=== PATIENT | male | born 1970 | race Caucasian/White ===

== ENCOUNTER 2021-10-06 00:49 | Observation (INO) | payer BC, SELFPAY ==
[2021-10-06] VITALS (13 sets, daily range): BP systolic 119–169; BP diastolic 84–115; PULSE 50–75; RESP 14–21; TEMP 36.2–36.6; O2SAT 95–99; BMI 32.0; BMI 29.7
--- NOTE | 2021-10-06 00:54 | EKG12_ITS ---
Test Reason : CP Blood Pressure : / mmHG Vent. Rate : 070 BPM Atrial Rate : 070 BPM P-R Int : 170 ms QRS Dur : 098 ms QT Int : 392 ms P-R-T Axes : 073 -04 015 degrees QTc Int : 423 ms Normal sinus rhythm Normal ECG Confirmed by KLE MONROY, CHAPIN ([id number]), primer expeditor and drier YENNIFER RODRÍGUEZ ([id number]) on 10/07/2021 9:56:33 AM Referred By: PL Confirmed By:CHAPIN BEGUM MD
--- NOTE | 2021-10-06 00:54 | RAD_ITS ---
STUDY: AP PORTABLE UPRIGHT CHEST X-RAY OF 2 0054 HOURS ON 10/06/2021 REASON FOR EXAM: 51-year-old male with chest pain. TECHNIQUE: A single view AP portable upright chest x-ray was performed. COMPARISON: None. FINDINGS: Mild demineralization. Old surgical plating of a mid right clavicular fracture. No rib fractures. Moderate osteophytic degenerative changes of the thoracic spine. Borderline cardiomegaly without heart failure. No pulmonary infiltrates, atelectasis, effusion, or pulmonary mass lesions. RAD/Chest 1 View (Portable) IMPRESSION: 1. Borderline cardiomegaly without heart failure. 2. No other evidence of active cardiopulmonary disease. 3. Old surgical plating of a mid right clavicular fracture. Possibility degenerative changes of the thoracic spine. Mild demineralization. Electronically Signed: Tera Thornton MD at 2:17 EDT ,
[2021-10-06 01:06] LABS: Basophil# 0.09 X10^3/uL; Basophil% 0.6 % (0-1); Eosinophil# 0.08 X10^3/uL; Eosinophils% 0.5 % (0-5); Hematocrit 51.8 % (40-54); Hemoglobin 18.4 g/dL (13.0-16.5); Lymphocyte % 35.2 % (19-41); Mean Corp Hgb Conc 35.5 g/dL (32-36); Mean Corpuscular Hgb 33.3 pg (27.0-32.0); Mean Corpuscular Volume 93.7 fL (80-94); Mean Platelet Vol. 8.9 fl (6.2-12.0); Monocyte# 1.41 X10^3/uL; Monocyte% 9.5 % (0-10); NRBC Flagged by Analyzer 0 % (0-5); Neutrophil # 7.96 X10^3/uL (2.7-7.7); Neutrophil % 53.9 % (47-70); POSITIVE DIFFERENTIAL YES; Platelet Count 363 K/mm3 (150-450); RBC Distribution Width CV 13.6 % (11.6-14.6); RBC Distribution Width SD 47.2 fl (35.1-43.9); Red Blood Count 5.53 M/mm3 (4.6-6.2); White Blood Count 14.8 K/mm3 (4.4-11.0)
--- NOTE | 2021-10-06 01:17 | CT_ITS ---
STUDY: PULMONARY AND CHEST CT ANGIOGRAPHY OF THE CEREBRAL 0139 HOURS ON 10/06/2021 REASON FOR EXAM: 51-year-old male with chest pain. Evaluate for pulmonary thromboembolism. RADIATION DOSAGE (If Supplied By Facility): CTDIvol = ( 13.38 ) mGy, DLP = ( 471.40 ) mGycm TECHNIQUE: The examination was performed with the intravenous administration of IV 100mL Isovue-300. Post-processing of the angiographic images was performed, with multiplanar reformation and 3D reconstruction. Individualized dose optimization techniques were used for this CT. COMPARISON: None. FINDINGS: Borderline to mild cardiomegaly. No heart failure. No mediastinal or hilar lymphadenopathy. Normal trachea and esophagus. Small area of fibrosis in the lateral aspect of the apical segment left upper lobe. Mild bilateral bronchial wall thickening that may represent a mild bilateral bronchitis or may be secondary to smoking. No evidence of pulmonary infiltrates, atelectasis, effusion, or pulmonary mass lesions. No pulmonary thromboembolism. No thoracic aortic dissection or aneurysm. Normal osseous structures. CT/CTA Chest W/WO Contrast IMPRESSION: 1. No pulmonary thromboembolism. 2. No thoracic aortic dissection or aneurysm. 3. Borderline to mild cardiomegaly without heart failure. 4. Mild bilateral bronchial wall thickening that may represent a mild bilateral bronchitis or may be secondary to smoking. 5. No other evidence of active cardiopulmonary disease. Electronically Signed: Tera Thornton MD at 2:44 EDT ,
[2021-10-06 01:18] LABS: Differential Indicated SCAN CRITERIA MET
--- NOTE | 2021-10-06 01:20 | ED.VIS.CHEST ---
HPI History of Present Illness Chief Complaint: Chest Pain Informant: patient Narrative Narrative: Patient was awoken this night with chest pain. It is a heaviness sitting on his sternum. It radiates to both sides of his chest and to the back. He states it hurts when he takes a deep breath. He has had no nausea vomiting. No lightheadedness. Not presyncopal. He is not diaphoretic. However, he states when this first started he did get sweaty. He has not had this before he thinks. He does remember having a stress test about 5 years ago. This was negative. He is not sure if this pain was the same. He has no travel surgery immobilization personal family history of DVT or PE. He does have family history of heart disease. His father had bypass surgery in his 40s. This patient has history of smoking and was counseled to quit. He is not treated for blood pressure, cholesterol, diabetes. PFSH PFSH Home Medications No Known/Unobtainable [No Known Home Medications] 09/11/15 [History Last Taken Unknown] Allergy/AdvReac Type Severity Reaction Status Date / Time morphine Allergy Anaphylaxis Verified 10/06/21 00:53 Social History Smoking Status: Current every day smoker tobacco type: cigarettes ROS ROS ED Constitutional Constitutional ED: Denies chills or fever(s) Eyes Eyes: Denies blurry vision ENT ENT ED: Denies rhinorrhea or sore throat Cardiovascular Cardiovascular: Reports as per HPI and chest pain Respiratory/Chest Respiratory/Chest: Reports dyspnea; Denies cough Gastrointestinal Gastrointestinal: Denies nausea or vomiting Genitourinary Genitourinary ED: Denies dysuria Musculoskeletal Musculoskeletal: Denies arthralgias, myalgias or neck pain Integumentary Denies rash Neurologic Neurologic: Denies headache(s), paresthesias or weakness Psychiatric Psychiatric: Denies depression Endocrine Endocrinology: Denies polydipsia or polyuria Hematologic/Lymphatic Hematologic/Lymphatic: Denies easy bleeding or easy bruising Allergic/Immunologic Allergic/Immunologic ED: Denies urticaria EXAM Physical Exam Const Vital Signs: 10/06/21 00:49 10/06/21 00:51 10/06/21 00:58 Temperature 97.6 F L Temperature Source Temporal Pulse Rate 75 Respiratory Rate 15 Respiratory Effort Normal Non-Labored Blood Pressure 169/115 H Blood Pressure Mean 133 Pulse Ox 98 98 Oxygen Delivery Method Room Air Room Air 10/06/21 01:47 10/06/21 01:52 10/06/21 01:56 Temperature Temperature Source Pulse Rate 69 68 69 Respiratory Rate Respiratory Effort Blood Pressure 125/114 H 152/98 H 134/90 H Blood Pressure Mean Pulse Ox Oxygen Delivery Method 10/06/21 02:49 10/06/21 03:10 Temperature 97.1 F L Temperature Source Temporal Pulse Rate 50 L 50 L Respiratory Rate 15 21 H Respiratory Effort Blood Pressure 124/87 H 119/84 H Blood Pressure Mean 99 95 Pulse Ox 95 95 Oxygen Delivery Method Room Air Room Air Positive well nourished and well developed General Appearance ED: well developed and NAD HEENT normocephalic and atraumatic Eyes General Eye ED: Negative for pale conjunctiva Neck No no JVD Chest Wall inspection of chest normal Chest Narrative: Patient does have some tenderness to the right side of his sternum but not anywhere else. No subcu air. No crepitance. Resp normal respiratory effort and clear to auscultation bilaterally Resp Narrative: Patient's lungs sound clear. He can take good deep breaths. There is no observable discomfort with this. There is no cessation of inspiration with a deep breath. Effort and Inspection: Negative for respiratory distress Auscultation: Negative for rales, rhonchi or wheezes Cardio regular rate, regular rhythm and S1 normal heart sound Rate: other Other Details: Heart is regular. I do not hear murmur at this time. No muffled tones. Peripheral pulses are equal x4. GI normal to inspection, nondistended, normoactive bowel sounds Back/Spine no CVA tenderness Extremity normal to inspection General Extremety ED: Negative for edema, pulses abnormal or tenderness General Extremity: Negative for edema or pulses abnormal Neuro Sensorium / Orientation: awake and alert Psych mental status grossly normal Skin no rashes or lesions noted Heart Score History: Moderately Suspicious ECG: Normal Age: >45 - <65 years Risk Factors: >/= 3 Risk Factors or History of CAD Troponin: </= Normal Limit Score: 4 MDM MDM MDM Narrative Medical decision making narrative: Patient CBC showed high white count and hemoglobin. This may be from chronic smoking. Electrolytes are overall unremarkable. Troponin was negative. CT scan of the chest did not show any dissection or pulmonary embolus. Patient was feeling better. His blood pressure did come down after nitro. His pain was better but not gone. He was given some Toradol as he has anaphylaxis to morphine. Patient has a heart score of 4. He has not had a stress test in 5 years. I discussed the case with the hospitalist. Lab Data Labs: Laboratory Results - last 24 hr 10/06/21 10/06/21 10/06/21 00:50 00:50 02:00 WBC 14.8 H RBC 5.53 Hgb 18.4 H* Hct 51.8 MCV 93.7 MCH 33.3 H MCHC 35.5 RDW Std Deviation 47.2 H RDW Coeff of Liane 13.6 Plt Count 363 MPV 8.9 Immature Gran % (Auto) 0.300 Neut % (Auto) 53.9 Lymph % (Auto) 35.2 [place] % (Auto) 9.5 Eos % (Auto) 0.5 Baso % (Auto) 0.6 Absolute Neuts (auto) 8.0 H Absolute Lymphs (auto) 5.20 H Nucleated RBC % 0 Diff Path Review May foll Sodium 140 Potassium 3.5 Chloride 107 Carbon Dioxide 28.0 Anion Gap 5 BUN 5 L Creatinine 0.85 Estim Creat Clear Calc 93.82 Est GFR (MDRD) Af Amer 122 Est GFR (MDRD) Non-Af 101 BUN/Creatinine Ratio 5.9 L Glucose 99 Calcium 9.4 Troponin I High Sens < 3 L < 3 L Radiography Diagnostic Testing: Clinical Impression(s) from Imaging Studies Chest X-Ray 10/06/21 00:54 IMPRESSION: 1. Borderline cardiomegaly without heart failure. 2. No other evidence of active cardiopulmonary disease. 3. Old surgical plating of a mid right clavicular fracture. Possibility degenerative changes of the thoracic spine. Mild demineralization. Electronically Signed: Tera Thornton MD at 2:17 EDT , Chest CTA 10/06/21 01:17 IMPRESSION: 1. No pulmonary thromboembolism. 2. No thoracic aortic dissection or aneurysm. 3. Borderline to mild cardiomegaly without heart failure. 4. Mild bilateral bronchial wall thickening that may represent a mild bilateral bronchitis or may be secondary to smoking. 5. No other evidence of active cardiopulmonary disease. Electronically Signed: Tera Thornton MD at 2:44 EDT , EKG Initial EKG: Comments: EKG done for chest pain read by me shows a normal sinus rhythm with a rate of 70. No acute ST elevation or depression. There is isolated T wave inversion in 3 which is a normal variant. AL interval, QRS duration and QTc normal. Discharge Plan Dx/Rx/DC Orders Clinical Impression: Chest pain, Elevated blood pressure reading, Tobacco abuse Disposition Disposition: Acute Care Hospital [facility] Discharge Date/Time: 10/06/21 03:26
[2021-10-06 01:27] LABS: Anion Gap 5 (5-15); BUN 5 mg/dL (7-18); BUN/Creat Ratio 5.9 RATIO (10-20); Calcium,Total 9.4 mg/dL (8.5-10.1); Chloride 107 mmol/L (98-107); Creatinine, Serum 0.85 mg/dL (0.70-1.30); EST Glomerular Filtration Rate 101 mL/min (>60); Est Glom Filt Rate - Afr Amer 122 mL/min (>60); Estimated Creatinine Clearance 93.82 ml/min; Glucose 99 mg/dL (74-106); Potassium 3.5 mmol/L (3.5-5.1); Sodium Level 140 mmol/L (136-145); Troponin-I HS < 3 pg/mL (3.0-78.0)
[2021-10-06] MEDS: Nitroglycerin SL (ED/IMG/CATH) 0.4 MG TABLET SL ×3 (01:47→01:56)
[2021-10-06] MEDS: Ketorolac 15 MG/ML Vial IV (02:55)
[2021-10-06 03:14] LABS: Troponin-I HS < 3 pg/mL (3.0-78.0)
--- NOTE | 2021-10-06 03:58 | PCM.HP.STD ---
HPI - General General Date of Admission: 10/06/21 HPI Narrative PAYAM OSULLIVAN, is a 51 M who presents with complaint of chest pain. Patient does not have anginal symptoms before this. Did not engage in recent strenuous activities such as would cause a musculoskeletal problem Patient states this awoke him, with pain 10/10 sitting on his sternum. It did not radiate. He does remember having a stress test about 5 years ago. This was negative. Father had early cardiac disease in his 40s. Patient smokes 1 ppd and was known to have High blood pressure, however he does not check his blood pressure take any medications for hypertension. Does not know that he has diabetes Patient did have negative troponins and his EKG shows normal sinus rhythm without depressions or elevations that are concerning. Electrolytes were obtained and these are normal. CTA neg for embolism. He still has about 7 out of 10 chest pain at this time, at admission Family history as above. PFSH Home Medications No Known/Unobtainable [No Known Home Medications] 09/11/15 [History Last Taken Unknown] Allergy/AdvReac Type Severity Reaction Status Date / Time morphine Allergy Anaphylaxis Verified 10/06/21 00:53 Social History Smoking Status: Current every day smoker tobacco type: cigarettes Vital Signs Vital Signs Vital Signs: 10/06/21 00:49 10/06/21 00:51 10/06/21 00:58 Temperature 97.6 F L Temperature Source Temporal Pulse Rate 75 Respiratory Rate 15 Respiratory Effort Normal Non-Labored Blood Pressure 169/115 H Blood Pressure Mean 133 Pulse Ox 98 98 Oxygen Delivery Method Room Air Room Air 10/06/21 01:47 10/06/21 01:52 10/06/21 01:56 Temperature Temperature Source Pulse Rate 69 68 69 Respiratory Rate Respiratory Effort Blood Pressure 125/114 H 152/98 H 134/90 H Blood Pressure Mean Pulse Ox Oxygen Delivery Method 10/06/21 02:49 10/06/21 03:10 Temperature 97.1 F L Temperature Source Temporal Pulse Rate 50 L 50 L Respiratory Rate 15 21 H Respiratory Effort Blood Pressure 124/87 H 119/84 H Blood Pressure Mean 99 95 Pulse Ox 95 95 Oxygen Delivery Method Room Air Room Air Weight Weight: 184 lb 1.376 oz Body Mass Index (BMI) 29.7 Physical Exam Narrative Narrative General Appearance ED: well developed and NAD Nutritional Appearance: well HEENT Moist mucous membranes normocephalic Eyes PERRL Thyroid: Negative for goiter Chest Wall inspection of chest normal and palpation of chest normal Resp normal respiratory effort, no retractions and clear to auscultation bilaterally Auscultation: Negative for rales, rhonchi or wheezes Cardio regular rate, regular rhythm, S1 normal heart sound, S2 normal heart sound and no murmurs GI non-tender, non-distended and no masses Auscultation: normoactive bowel sounds Palpation: soft; Negative for tender or guarding. No lower extremity edema. Results Lab / Micro Data Result Diagrams: 10/06/21 00:50 10/06/21 00:50 Labs: Laboratory Results - last 24 hr 10/06/21 00:50: WBC 14.8 H, RBC 5.53, Hgb 18.4 H*, Hct 51.8, MCV 93.7, MCH 33.3 H, MCHC 35.5, RDW Std Deviation 47.2 H, RDW Coeff of Liane 13.6, Plt Count 363, MPV 8.9, Immature Gran % (Auto) 0.300, Neut % (Auto) 53.9, Lymph % (Auto) 35.2, [place] % (Auto) 9.5, Eos % (Auto) 0.5, Baso % (Auto) 0.6, Absolute Neuts (auto) 8.0 H, Absolute Lymphs (auto) 5.20 H, Nucleated RBC % 0, Diff Path Review November10/06/21 00:50: Sodium 140, Potassium 3.5, Chloride 107, Carbon Dioxide 28.0, Anion Gap 5, BUN 5 L, Creatinine 0.85, Estim Creat Clear Calc 93.82, Est GFR (MDRD) Af Amer 122, Est GFR (MDRD) Non-Af 101, BUN/Creatinine Ratio 5.9 L, Glucose 99, Calcium 9.4, Troponin I High Sens < 3 L 10/06/21 02:00: Troponin I High Sens < 3 L Radiology Impression Chest X-Ray 10/06/21 00:54 IMPRESSION: 1. Borderline cardiomegaly without heart failure. 2. No other evidence of active cardiopulmonary disease. 3. Old surgical plating of a mid right clavicular fracture. Possibility degenerative changes of the thoracic spine. Mild demineralization. Electronically Signed: Tera Thornton MD at 2:17 EDT , Chest CTA 10/06/21 01:17 IMPRESSION: 1. No pulmonary thromboembolism. 2. No thoracic aortic dissection or aneurysm. 3. Borderline to mild cardiomegaly without heart failure. 4. Mild bilateral bronchial wall thickening that may represent a mild bilateral bronchitis or may be secondary to smoking. 5. No other evidence of active cardiopulmonary disease. 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 He does not want to be on life support Ganga Cat MD Charges/Coding Visit Charges Inpatient E&M: 94831 Subs Hosp L2
--- NOTE | 2021-10-06 04:00 | EKG12_ITS ---
Test Reason : Blood Pressure : / mmHG Vent. Rate : 041 BPM Atrial Rate : 041 BPM P-R Int : 158 ms QRS Dur : 098 ms QT Int : 438 ms P-R-T Axes : 021 021 -01 degrees QTc Int : 361 ms Marked sinus bradycardia with sinus arrhythmia Abnormal ECG When compared with ECG of 06-OCT-2021 04:00, MANUAL COMPARISON REQUIRED, DATA IS UNCONFIRMED Confirmed by GEORGE MONROY, CARLOTA ([id number]), department editor YENNIFER RODRÍGUEZ ([id number]) on 10/07/2021 9:31:42 AM Referred By: CHLOE Confirmed By:CARLOTA VAZQUEZ MD
[2021-10-06 07:01] LABS: Absolute Lymphocyte Count 2.73 X10^3/uL (0.83-4.51); Absolute Neutrophil Count 12.6 X10^3/uL (2.0-7.7); Basophil# 0.05 X10^3/uL; Basophil% 0.3 % (0-1); Eosinophil# 0.01 X10^3/uL; Eosinophils% 0.1 % (0-5); Hematocrit 47.6 % (40-54); Hemoglobin 17.1 g/dL (13.0-16.5); Lymphocyte # 2.73 X10^3/ul (0.83-4.51); Lymphocyte % 16.5 % (19-41); Mean Corp Hgb Conc 35.9 g/dL (32-36); Mean Corpuscular Hgb 33.3 pg (27.0-32.0); Mean Corpuscular Volume 92.8 fL (80-94); Mean Platelet Vol. 9.1 fl (6.2-12.0); Monocyte# 1.05 X10^3/uL; Monocyte% 6.3 % (0-10); NRBC Flagged by Analyzer 0 % (0-5); Neutrophil # 12.64 X10^3/uL (2.7-7.7); Neutrophil % 76.3 % (47-70); Platelet Count 340 K/mm3 (150-450); RBC Distribution Width CV 13.5 % (11.6-14.6); RBC Distribution Width SD 45.9 fl (35.1-43.9); Red Blood Count 5.13 M/mm3 (4.6-6.2); White Blood Count 16.6 K/mm3 (4.4-11.0)
[2021-10-06 07:37] LABS: Cholesterol 173 mg/dL (200); High Density Lipoprotein 29 mg/dL; Magnesium 2.2 mg/dL (1.6-2.6); Triglycerides 126 mg/dL; Troponin-I HS < 3 pg/mL (3.0-78.0); Very Low Density Lipoprotein 25 mg/dL (5-40)
--- NOTE | 2021-10-06 07:57 | EKG12_ITS ---
Test Reason : CP ADMIT Blood Pressure : / mmHG Vent. Rate : 057 BPM Atrial Rate : 057 BPM P-R Int : 158 ms QRS Dur : 098 ms QT Int : 428 ms P-R-T Axes : 021 017 -05 degrees QTc Int : 416 ms Sinus bradycardia with sinus arrhythmia Otherwise normal ECG When compared with ECG of 20-AUG-2002 00:11, T wave amplitude has increased in Anterolateral leads Confirmed by GEORGE MONROY, CARLOTA ([id number]), newspaper copy editor YENNIFER RODRÍGUEZ ([id number]) on 10/07/2021 9:32:55 AM Referred By: GARRISON Confirmed By:CARLOTA VAZQUEZ MD
[2021-10-06 08:54] LABS: Hemoglobin A1c 5.1 % (3.8-5.6)
--- NOTE | 2021-10-06 11:59 | CHAPLAIN ---
Type of Pastoral Visit _x__ Initial Visit ___ Follow-up Visit ___ On-call Visit ___ General Patient Visit ___ Spiritual Assessment ___ Family Conference ___ Bereavement ___ Rapid Response ___ Code Blue ___ Other (describe below) Pastoral Care Referral From _x__ Patient ___ Family ___ Nurse ___ Physician ___ Phone Engineer ___ Storage Solutions Architect ___ Other (describe below) Sacrament/Intervention _x__ Active listening ___ Anointing ___ Gnosticism ___ Bereavement ___ Communion ___ Nathaly exploration ___ ___ Life review ___ Prayer ___ Reconciliation ___ Sacrament of Sick ___ Supportive presence ___ Wedding ___ Other (describe below) Pastoral Comments offer of support given to patient; pt states that whatever happens to me I am good to go - Home or home; pt refers to his belief in God and how He helps him in these times; SO is at bedside for support; pt reports no other needs
--- NOTE | 2021-10-06 12:44 | STRESSREP_ITS ---
Stress Test Report Date: 10-06-2021 Procedure: Exercise tolerance test/imaging study Indications: Chest pain Consent: Per the patient Procedure: The patient exercised on a Jose protocol for 9 minutes completing Stage III achieving a peak heart rate of 136 bpm (80% predicted maximal heart rate) with a peak blood pressure 152/88 mmHg and a peak MET capacity of 10 METs. The baseline ECG demonstrated sinus bradycardia. The peak exercise ECG demonstrated no obvious ECG changes. There were no cardiac dysrhythmias pretest, during exercise, or recovery. The functional capacity was considered good. There was notation of chest discomfort pretest but no report of chest discomfort during exercise or recovery. The examination was discontinued secondary to dyspnea and leg fatigue. Impression: 1. Technically inadequate (percent predicted maximal heart rate less than 85%) exercise tolerance test 2. Peak exercise ECG with no obvious ECG changes at the heart rate achieved 3. There were no cardiac dysrhythmias pretest, during exercise, or recovery 4. Nuclear images pending Myocardial perfusion imaging study: Technique: The patient was injected with 12.0 mCi of technetium 99m Cardiolite and subsequently rest SPECT Cardiolite nuclear imaging was obtained in the horizontal long, vertical long, and short axis views. The patient exercised on a Jose protocol for 9 minutes completing Stage III achieving a peak heart rate of 136 bpm (80% predicted maximal heart rate) with a peak blood pressure 152/88 mmHg and a peak MET capacity of 10 METs. The patient was injected with 33.2 mCi of technetium 99m Cardiolite and subsequently stress SPECT Cardiolite nuclear imaging was obtained in the horizontal long, vertical long, and short axis views. A gated Cardiolite study at peak stress was obtained. Interpretation: Rest and stress SPECT Cardiolite nuclear imaging status post realignment, normalization, and attenuation correction, demonstrates the appearance of relative uniform tracer uptake and myocardial perfusion appearing within normal limits. There is end systolic thickening and brightening. The gated Cardiolite study demonstrates myocardial thickening and inward wall motion. The reported LVEF is 58%. Impression: 1. Rest and stress SPECT Cardiolite nuclear imaging demonstrate relative uniform tracer uptake and myocardial perfusion appearing within normal limits at the heart rate achieved. 2. The gated Cardiolite study reports an LVEF of 58%. This note was generated with [employer]'s what's in store software. It may contain incorrect words, spelling, and punctuation that were not noted in checking the note before signing.
[2021-10-06 13:30] LABS: Pathologist Review Reviewed
--- NOTE | 2021-10-06 14:39 | PCM.DC ---
Discharge Instructions Diet Discharge Diet: No restrictions Activity Discharge Activity: Return to Normal Activity Weight Bearing Status: Full weight bearing Follow Up Care Test Results: Test results from this visit will be discussed in further detail at your follow-up appointment, if applicable. Discharge Plan Admission Admit Date/Time: 10/06/21 03:52 Primary Reason for Your Visit: chest wall pain Attending Provider: Darwin Montelongo Primary Care Provider: Care Physician,No Primary Instructions Additional Instructions / Restrictions: Follow up with a primary care physician within 3-4 weeks Discharge Orders/Prescriptions Prescriptions: No Action No Known Home Medications RF: 0 Referrals / Follow Up: Care Physician,No Primary [Primary Care Provider] - Disposition Disposition (needs filled in before D/C Order can be placed): Home, Self Care
--- NOTE | 2021-10-06 15:07 | DS.PCM_ITS ---
Providers Date of Admission: 10/06/21 Date of Discharge: 10/06/21 Primary Care Physician: No Primary Care Phys Reason For Visit: CHEST PAIN Diagnosis Discharge Diagnosis (1) Tobacco abuse: Status: Acute Code(s): Z72.0 - Tobacco use (2) Elevated blood pressure reading: Status: Acute Code(s): R03.0 - Elevated blood-pressure reading, without diagnosis of hypertension (3) Chest pain: Status: Acute Code(s): R07.9 - Chest pain, unspecified Plan: 1. Musculoskeletal chest pain #2 transient hypertension Medications at Discharge Home Medications No Known/Unobtainable [No Known Home Medications] 09/11/15 Hospital Course Operations None Procedures Nuclear stress test Summary of Care Provided Minutes Spent on Discharge: 30 Hospital Course: This 51-year-old white male was seen in the emergency room at [facility] with complaints of precordial chest pain, work-up in the emergency room including an EKG, cardiac enzymes, and the chest x-ray all were unremarkable. Patient was placed in observation status on PCU, serial enzymes were obtained and these remain normal. Patient underwent a nuclear stress test on 10/06/2021 that was negative for reversible ischemia. On 10/06/2021, patient was seen and examined: On examination he appeared in good health and spirits. Vital signs as documented. Skin warm and dry and without overt rashes. Neck without JVD, neck was supple, trachea midline, thyroid was normal. Lungs clear bilaterally, normal air movement was noted. Heart exam notable for regular rhythm, normal sounds and absence of murmurs, rubs or gallops. Abdomen unremarkable and without evidence of organomegaly, masses, or abdominal aortic enlargement. Bowel sounds are present, abdomen is not distended. Extremities nonedematous, no cyanosis was noted, no clubbing was noted. Neuro: Cranial nerves II through XII are grossly intact, no focal motor deficits were noted, sensation to light touch and pinprick intact, motor exam 5/5 throughout. Psych: Patient is alert and oriented x3, he does not appear anxious or depressed, he does not appear agitated. Patient was discharged home in stable condition on 10/06/2021 Weight / BMI Weight Weight: 83.5 kg Body Mass Index (BMI) 29.7 ABG / Lab / Microbiology Data Result Diagrams: 10/06/21 06:52 10/06/21 00:50 Laboratory: Laboratory Results - last 24 hr 10/06/21 00:50: WBC 14.8 H, RBC 5.53, Hgb 18.4 H*, Hct 51.8, MCV 93.7, MCH 33.3 H, MCHC 35.5, RDW Std Deviation 47.2 H, RDW Coeff of Liane 13.6, Plt Count 363, MPV 8.9, Immature Gran % (Auto) 0.300, Neut % (Auto) 53.9, Lymph % (Auto) 35.2, Monroe % (Auto) 9.5, Eos % (Auto) 0.5, Baso % (Auto) 0.6, Absolute Neuts (auto) 8.0 H, Absolute Lymphs (auto) 5.20 H, Nucleated RBC % 0, Diff Path Review Reviewed 10/06/21 00:50: Sodium 140, Potassium 3.5, Chloride 107, Carbon Dioxide 28.0, Anion Gap 5, BUN 5 L, Creatinine 0.85, Estim Creat Clear Calc 93.82, Est GFR (MDRD) Af Amer 122, Est GFR (MDRD) Non-Af 101, BUN/Creatinine Ratio 5.9 L, Glucose 99, Calcium 9.4, Troponin I High Sens < 3 L 10/06/21 02:00: Troponin I High Sens < 3 L 10/06/21 06:52: Magnesium 2.2, Troponin I High Sens < 3 L, Triglycerides 126, Cholesterol 173, LDL Cholesterol 119, VLDL Cholesterol 25, HDL Cholesterol 29 L 10/06/21 06:52: WBC 16.6 H, RBC 5.13, Hgb 17.1 H, Hct 47.6, MCV 92.8, MCH 33.3 H , MCHC 35.9, RDW Std Deviation 45.9 H, RDW Coeff of Liane 13.5, Plt Count 340, MPV 9.1, Immature Gran % (Auto) 0.500, Neut % (Auto) 76.3 H, Lymph % (Auto) 16.5 L, Monroe % (Auto) 6.3, Eos % (Auto) 0.1, Baso % (Auto) 0.3, Absolute Neuts (auto) 12.6 H, Absolute Lymphs (auto) 2.73, Nucleated RBC % 0 10/06/21 06:52: Hemoglobin A1c 5.1 Radiography Diagnostic Testing: Radiology Impression Chest X-Ray 10/06/21 00:54 IMPRESSION: 1. Borderline cardiomegaly without heart failure. 2. No other evidence of active cardiopulmonary disease. 3. Old surgical plating of a mid right clavicular fracture. Possibility degenerative changes of the thoracic spine. Mild demineralization. Electronically Signed: Tera Thornton MD at 2:17 EDT , Chest CTA 10/06/21 01:17 IMPRESSION: 1. No pulmonary thromboembolism. 2. No thoracic aortic dissection or aneurysm. 3. Borderline to mild cardiomegaly without heart failure. 4. Mild bilateral bronchial wall thickening that may represent a mild bilateral bronchitis or may be secondary to smoking. 5. No other evidence of active cardiopulmonary disease. Electronically Signed: Tera Thornton MD at 2:44 EDT , D/C Instructions Discharge Diet: No restrictions Weight Bearing Status: Full weight bearing Meaningful Use Info Meaningful Use Diagnoses (Choose all that apply): None applicable Discharge Plan Admission Admit Date/Time: 10/06/21 03:52 Primary Reason for Your Visit: chest wall pain Attending Provider: Darwin Montelongo Primary Care Provider: Care Physician,No Primary Instructions Additional Instructions / Restrictions: Follow up with a primary care physician within 3-4 weeks Discharge Orders/Prescriptions Prescriptions: No Action No Known Home Medications RF: 0 Referrals / Follow Up: Care Physician,No Primary [Primary Care Provider] - Disposition Disposition (needs filled in before D/C Order can be placed): Home, Self Care Charges/Coding Visit Charges OBSV E&M: 71914 Observ/hosp same date L3
== END 2021-10-06 14:43 | disposition home or self-care (01) ==
LOC: ED 01:35 → PCU 03:54
PROVIDERS: Admitting Provider Hospitalist; Emergency Provider Emergency Medicine; Visit Provider Internal Medicine
DX: R07.89 Other chest pain (principal); R03.0 Elevated blood-pressure reading, without diagnosis of hypertension; F17.210 Nicotine dependence, cigarettes, uncomplicated; R06.00 Dyspnea, unspecified; Z82.49 Family history of ischemic heart disease and other diseases of the circulatory system; R00.1 Bradycardia, unspecified; R94.31 Abnormal electrocardiogram [ECG] [EKG]
CPT/HCPCS: 36415; 71045; 71275; 78452; 80048; 80061; 83036; 83735; 84484; 85025; 93005; 93017; 96374; 99218; 99285; 99406; A9500; Q9967; A4216; G0378

== ENCOUNTER 2024-10-25 05:00 | Day surgery (SDC) | payer BC, SELFPAY ==
--- NOTE | 2024-10-22 16:47 | PAT.ANESEVAL ---
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 When Was Last Pacemaker Check QUESTION #4 FULL TEXT: You/Your Family Experience fever (hyperthermia) with Anesthesia Last Oral Intake Last Oral intake: Last Oral Intake NPO since Meds taken in AM with sips of water? Meds patient instructed to take am of surgery PONV PONV - baggage security checker: PONV - baggage security checker Female No 10/22/24 14:08 HX of Motion Sickness No 10/22/24 14:08 HX of N/V After Surgery No 10/22/24 14:08 Non-Smoker Yes 10/22/24 14:08 Duration of Surgery greater No 10/22/24 14:08 than 60 minutes Number of Risk Factors 1 10/22/24 14:08 PONV Score Low Risk 10/22/24 14:08 Height & Weight Height & Weight: Anesthesia: Height & Weight Height 5 ft 6 in 10/06/21 03:30 Respiratory Assessment Respiratory Assessment - baggage security checker: Respiratory Tract Infection Hx - baggage security checker Hx Respiratory Tract Infection No 10/22/24 14:08 STOP Sleep Apnea STOP Sleep Apnea - baggage security checker: STOP Sleep Apnea - baggage security checker Hx Hypertension No 10/22/24 14:08 Hx Sleep Apnea No 10/22/24 14:08 CPAP BIPAP Do you snore loudly (louder No 10/22/24 14:08 than talking or can be heard Do you often feel tired/ No 10/22/24 14:08 fatigued/ sleepy during daytime? Has anyone observed you stop No 10/22/24 14:08 breathing during sleep? STOP Results Negative 10/22/24 14:08 QUESTION #5 FULL TEXT : Do you snore loudly (louder than talking or can be heard through closed doors)? 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 Specify any problems Hx of Preganancy in last 3 N/A 10/22/24 14:08 Months Nurse Filling Out Transfusion VCHRISTIN 10/22/24 14:08 & Questions: Date: 10/22/24 10/22/24 14:08 Time: 14:09 10/22/24 14:08 Patient unable to answer at this time (ie. confused, unrespo /Reproduction History /Reproductive History - baggage security checker: /Reproductive Hx- baggage security checker Hx Now Gestational Age (in weeks): EDC: Hx Hx Para Hx Section SAB PFSH Medical History (Updated 10/22/24 @ 14:07 by Mechelle Arana) Wears glasses Arthritis Back pain Injury of back Migraine headache Injury of head and neck Difficulty swallowing Smoker COPD (chronic obstructive pulmonary disease) Chronic cough History of stress test Hypertension History of broken collarbone Traumatic brain injury Appetite loss Nausea RUQ pain Seizures Tobacco abuse Elevated blood pressure reading Home Medications ?Medication ?Instructions ?Recorded ?Last Taken ?Type lisinopril 10 mg tablet 10 mg PO QDAY 08/22/24 Unknown History acetaminophen 325 mg capsule 650 mg PO Q4H PRN pain 10/22/24 Unknown History ibuprofen 200 mg tablet (Advil) 200 mg PO Q6H PRN pain 10/22/24 Unknown History Allergy/AdvReac Type Severity Reaction Status Date / Time morphine Allergy Anaphylaxis Verified 10/22/24 13:52 Family History Father CAD (coronary artery disease) Mother Depression Diabetes Surgical History (Updated 10/22/24 @ 14:07 by Mechelle Arana) Hx of foot surgery Hx of bone graft Hx of surgical procedure Social History Smoking Status: Current every day smoker tobacco type: cigarettes alcohol intake: never substance use type: marijuana Audit: Pertinent Findings Pertinent Findings EKG Perinent findings: October 06, 2021. Sinus bradycardia with sinus arrhythmia. Stress test pertinent findings: October 06, 2021. Ejection fraction 58%. No ischemia no infarct. Recommendation Anesthesia Recommendation Anesthesia recommendation: OPTIMIZED for anesthesia
[2024-10-25] VITALS (8 sets, daily range): BP systolic 126–138; BP diastolic 88–96; PULSE 67–74; RESP 12–18; TEMP 36.2–36.6; O2SAT 94–100; BMI 35.4
--- NOTE | 2024-10-25 06:30 | EGD_PTH ---
PATIENT: PAYAM OSULLIVAN LOC: EN U#:[id number] AGE/SX: 54/M ROOM: RE10/25/[address]: Dr. Curt Alvarenga DO : 1970 BED: DIS: 10/25/2024 SPEC #: [id number] RECD: 10/25/24 10:37 STATUS: ZENA REDevante #: [id number] HUMZA: 10/25/24 06:[address]: Curt Alvarenga DEPT: SURGICAL PATHOLOGY RECD BY: Vinnie Schuler ENTERED: 10/25/24 10:37 SP TYPE: EGD BIOPSY SHABNAM DR: Johana Clark, BULLET ASSEMBLY PRESS OPERATOR-C Tissues: A - Duodenum, NOS B - Gastric mucous membrane Procedures: Immunohistochemical Stains Surgery Specimen Level IV HEADER OPERATION: Colonoscopy, EGD with biopsy PRE-OP DIAGNOSIS: Acid reflux, appetite loss, nausea, right upper quadrant pain, abdominal pain TISSUE SUBMITTED: A- Duodenum biopsy, B- Gastric body biopsy MICROSCOPIC DIAGNOSIS A. Duodenum, biopsy: * Normal villous architecture with Ellie gland hyperplasia and focal gastric mucin cell metaplasia, suggestive of peptic injury. * Negative for increased intraepithelial lymphocytes. B. Stomach, body, biopsy: * Chronic gastritis. * IHC positive for H pylori organisms. COMMENT . MICROSCOPIC DESCRIPTION Slides are reviewed. All matched controls reacted appropriately. These tests were developed and their performance characteristics determined by [facility]. They may not have been cleared or approved by the U.S. Food and Drug Administration. The FDA has determined that such clearance or approval is not necessary. The above immunohistochemical/dualISH markers are ordered and reviewed by the Pathologist. GROSS DESCRIPTION A. Received in formalin in a container labeled with the patient's name, date of , and duodenum biopsy are multiple carmichael-pink fragments of mucosal tissue measuring 1.0 x 0.5 x 0.3 cm in aggregate. Submitted in toto in A1. B. Received in formalin in a container labeled with the patient's name, date of , and gastric body biopsy for H. pylori and path are 2 carmichael-pink fragments of mucosal tissue measuring 0.5 x 0.3 x 0.3 cm and 0.5 x 0.2 x 0.2 cm. Submitted in toto in B1. B 11/03/2024 CPT:92403d0,63906
--- NOTE | 2024-10-25 06:40 | PRE.ANES_ITS ---
ASA Classification* ASA Classification ASA Classification: 2 Assessment & Plan Anesthesia* Anesthesia Assessment Anesthesia Assessment: Discussed sedation and/or anesthesia options, risks, benefits, and alternatives with patient/parents/legal guardian/POA. Questions invited. The patient/parents/legal guardian/POA seems to understand and agrees to proceed with anesthesia plan. Reviewed the physical assessment, medical history, allergy history and patient home medications list prior to surgery/procedure/anesthetic and documented any changes. Performed airway and anesthesia risk assessments. Anesthesia Type Anesthesia Type: MAC Anesthesia Focused Assessment* Temperature: 97.4 F Pulse Rate: 73 Blood Pressure: 130/90 Respiratory Rate: 16 Pulse Ox: 96 Airway Assessment Mouth opens: >3 cm Mallampati Score: II Focused Labs Anesthesia Preop lab: CBC WBC 16.6 K/mm3 (4.4-11.0) H 10/06/21 06:52 2 RBC 5.13 M/mm3 (4.6-6.2) 10/06/21 06:52 10/06/21 Hgb 17.1 g/dL (13.0-16.5) H 10/06/21 06:52 2 Hct 47.6 % (40-54) 10/06/21 06:52 10/06/21 Plt Count 340 K/mm3 (150-450) 10/06/21 06:52 10/06/21 CHEMISTRY Potassium 3.5 mmol/L (3.5-5.1) 10/06/21 00:50 10/06/21 Sodium 140 mmol/L (136-145) 10/06/21 00:50 10/06/21 Magnesium 2.2 mg/dL (1.6-2.6) 10/06/21 06:52 10/06/21 BUN 5 mg/dL (7-18) L 10/06/21 00:50 10/06/21 Creatinine 0.85 mg/dL (0.70-1.30) 10/06/21 00:50 10/06/21 Glucose 99 mg/dL (74-106) 10/06/21 00:50 10/06/21 COAG Pre-Assessment Diagnosis/Proposed Procedure Planned Operative Procedure(s): COLONOSCOPY EGD Anesthesia History 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 When Was Last Pacemaker Check QUESTION #4 FULL TEXT: You/Your Family Experience fever (hyperthermia) with Anesthesia Last Oral Intake Last Oral intake: Last Oral Intake NPO since 03:00 10/25/24 05:44 Meds taken in AM with sips of No 10/25/24 05:44 water? Meds patient instructed to take am of surgery PONV PONV - environmental services tech: PONV - environmental services tech Female No 10/22/24 14:08 HX of Motion Sickness No 10/22/24 14:08 HX of N/V After Surgery No 10/22/24 14:08 Non-Smoker Yes 10/22/24 14:08 Duration of Surgery greater No 10/22/24 14:08 than 60 minutes Number of Risk Factors 1 10/22/24 14:08 PONV Score Low Risk 10/22/24 14:08 Height & Weight Height & Weight: Anesthesia: Height & Weight Height 5 ft 6 in 10/25/24 05:44 Weight: 99.7 kg 10/25/24 05:44 Body Mass Index (BMI) 35.4 10/25/24 05:44 Respiratory Assessment Respiratory Assessment - environmental services tech: Respiratory Tract Infection Hx - environmental services tech Hx Respiratory Tract Infection No 10/22/24 14:08 STOP Sleep Apnea STOP Sleep Apnea - environmental services tech: STOP Sleep Apnea - environmental services tech Hx Hypertension No 10/22/24 14:08 Hx Sleep Apnea No 10/22/24 14:08 CPAP BIPAP Do you snore loudly (louder No 10/22/24 14:08 than talking or can be heard Do you often feel tired/ No 10/22/24 14:08 fatigued/ sleepy during daytime? Has anyone observed you stop No 10/22/24 14:08 breathing during sleep? STOP Results Negative 10/22/24 14:08 QUESTION #5 FULL TEXT : Do you snore loudly (louder than talking or can be heard through closed doors)? Tobacco Use History Tobacco Use History - environmental services tech: Tobacco Use History - environmental services tech Tobacco Use Smoking Status Current every day smoker 10/22/24 14:08 Hx Tobacco Use Yes 10/22/24 14:08 Years Smoking Packs Smoked per Day Smoking Cessation Date was within the last 15 years Hx Smoking Cessation Date Hx Smoking Cessation Counseling Hematologic Medial History Hematologic Hx - environmental services tech: Hematologic Medical Hx - refinery operator Hx of Blood Transfusion No 10/22/24 14:08 Hx of Transfusion in last 3 No 10/22/24 14:08 Months Date of Last Transfusion (if within last 3 months) Ever experience any problems No 10/22/24 14:08 with transfusion(s)? Specify any problems Hx of Preganancy in last 3 N/A 10/22/24 14:08 Months Nurse Filling Out Transfusion VCHRISTIN 10/22/24 14:08 & Questions: Date: 10/22/24 10/22/24 14:08 Time: 14:09 10/22/24 14:08 Patient unable to answer at this time (ie. confused, unrespo /Reproduction History /Reproductive History - environmental services tech: /Reproductive Hx- environmental services tech Hx Now Gestational Age (in weeks): EDC: Hx Hx Para Hx Section SAB PFSH Medical History Wears glasses Arthritis Back pain Injury of back Migraine headache Injury of head and neck Difficulty swallowing Smoker COPD (chronic obstructive pulmonary disease) Chronic cough History of stress test Hypertension History of broken collarbone Traumatic brain injury Appetite loss Nausea RUQ pain Seizures Tobacco abuse Elevated blood pressure reading Home Medications ?Medication ?Instructions ?Recorded ?Last Taken ?Type lisinopril 10 mg tablet 10 mg PO QDAY 08/22/2410/24 History acetaminophen 325 mg capsule 650 mg PO Q4H PRN pain Unknown History ibuprofen 200 mg tablet (Advil) 200 mg PO Q6H PRN pain 10/22/24 Unknown History Allergy/AdvReac Type Severity Reaction Status Date / Time morphine Allergy Anaphylaxis Verified 10/25/24 05:37 Family History Father CAD (coronary artery disease) Mother Depression Diabetes Surgical History Hx of foot surgery Hx of bone graft Hx of surgical procedure Social History Smoking Status: Current every day smoker tobacco type: cigarettes alcohol intake: never substance use type: marijuana Review of Systems (Anesthesia) ROS Narrative System reviewed and no additional complaints, except as documented.
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
--- NOTE | 2024-10-25 07:31 | OP.EGD_ITS ---
Patient Name: Blake Pruett Procedure Date: 10/25/2024 6:17 AM Date of : 1970 Age: 54 Procedure: Upper GI endoscopy Indications: Epigastric abdominal pain, Functional Dyspepsia Providers: Curt Alvarenga DO Referring MD: Dalton Garcia Medicines: Monitored Anesthesia Care Patient Profile: This is a 54 year old male. Refer to note in patient chart for documentation of history and physical. Patient has symptoms of chronic abdominal cramping, acute right upper quadrant abdominal pain, chronic dyspepsia and chronic nausea. Complications: No immediate complications. Procedure: Pre-Anesthesia Assessment: - Prior to the procedure, a History and Physical was performed, and patient medications and allergies were reviewed. The patient is competent. The risks and benefits of the procedure and the sedation options and risks were discussed with the patient. All questions were answered and informed consent was obtained. Patient identification and proposed procedure were verified by the physician in the pre-procedure area. Mental Status Examination: alert and oriented. Airway Examination: normal oropharyngeal airway and neck mobility. Respiratory Examination: clear to auscultation. CV Examination: normal. Prophylactic Antibiotics: The patient does not require prophylactic antibiotics. Prior Anticoagulants: The patient has taken no anticoagulant or antiplatelet agents except for NSAID medication. ASA Grade Assessment: II - A patient with mild systemic disease. After reviewing the risks and benefits, the patient was deemed in satisfactory condition to undergo the procedure. The anesthesia plan was to use monitored anesthesia care (MAC). Immediately prior to administration of medications, the patient was re-assessed for adequacy to receive sedatives. The heart rate, respiratory rate, oxygen saturations, blood pressure, adequacy of pulmonary ventilation, and response to care were monitored throughout the procedure. The physical status of the patient was re-assessed after the procedure. After obtaining informed consent, the endoscope was passed under direct vision. Throughout the procedure, the patient's blood pressure, pulse, and oxygen saturations were monitored continuously. The Colonoscope was introduced through the mouth, and advanced to the fourth part of the duodenum. Small bowel enteroscopy was deemed necessary. The upper GI endoscopy was accomplished without difficulty. The patient tolerated the procedure well. Scope In: 7:09:46 AM Scope Out: 7:13:06 AM Total Procedure Duration Time 0 hours 3 minutes 20 seconds Findings: Non-severe esophagitis with no bleeding was found. Patchy mildly erythematous mucosa without bleeding was found in the gastric body. Biopsies were taken with a cold forceps for histology. Biopsies were taken with a cold forceps for Helicobacter pylori testing. Verification of patient identification for the specimen was done. Estimated blood loss was minimal. Diffuse moderate inflammation characterized by congestion (edema) and friability was found in the entire duodenum. Biopsies were taken with a cold forceps for histology. Verification of patient identification for the specimen was done. Estimated blood loss was minimal. Impression: - Non-severe non-erosive esophagitis with no bleeding. - Erythematous mucosa in the gastric body. Biopsied. - Chronic duodenitis. Biopsied. Recommendation: - Discharge patient to home. - Resume previous diet. - Continue present medications. - Await pathology results. Procedure Code(s): --- Professional --- 52235, Small intestinal endoscopy, enteroscopy beyond second portion of duodenum, not including ileum; with biopsy, single or multiple CPT copyright 2021 [employer]. All rights reserved. The codes documented in this report are preliminary and upon diet attendant review may be revised to meet current compliance requirements. Curt Alvarenga DO 10/25/2024 7:29:48 AM This report has been signed electronically. Number of Addenda: 0 Note Initiated On: 10/25/2024 6:17 AM
--- NOTE | 2024-10-25 07:31 | OP.CCLET_ITS ---
10/25/2024 Dalton Garcia Re : Upper GI endoscopy procedure for Blake Pruett Dear Eduardo This procedure was performed on Friday, October 25, 2024. My impressions and recommendations are as follows: Impressions : - Non-severe non-erosive esophagitis with no bleeding. - Erythematous mucosa in the gastric body. Biopsied. - Chronic duodenitis. Biopsied. Recommendations : - Discharge patient to home. - Resume previous diet. - Continue present medications. - Await pathology results. My findings are described in the full procedure note, which is enclosed. If I can be of further assistance, please feel free to contact me at . Sincerely, Curt Alvarenga DO 10/25/2024 7:29:48 AM This report has been signed electronically.
--- NOTE | 2024-10-25 07:32 | OP.COLON_ITS ---
Patient Name: Blake Pruett Procedure Date: 10/25/2024 7:13 AM Date of : 1970 Age: 54 Procedure: Colonoscopy Indications: Screening for colorectal malignant neoplasm Providers: Curt Alvarenga DO Referring MD: Dalton Garcia Medicines: Monitored Anesthesia Care Patient Profile: This is a 54 year old male. Refer to note in patient chart for documentation of history and physical. Patient has symptoms of chronic abdominal cramping, acute right upper quadrant abdominal pain, chronic dyspepsia and chronic nausea. Last Colonoscopy: none. The patient's first colonoscopy is today. Complications: No immediate complications. Procedure: Pre-Anesthesia Assessment: - Prior to the procedure, a History and Physical was performed, and patient medications and allergies were reviewed. The patient is competent. The risks and benefits of the procedure and the sedation options and risks were discussed with the patient. All questions were answered and informed consent was obtained. Patient identification and proposed procedure were verified by the physician in the pre-procedure area. Mental Status Examination: alert and oriented. Airway Examination: normal oropharyngeal airway and neck mobility. Respiratory Examination: clear to auscultation. CV Examination: normal. Prophylactic Antibiotics: The patient does not require prophylactic antibiotics. Prior Anticoagulants: The patient has taken no anticoagulant or antiplatelet agents except for NSAID medication. ASA Grade Assessment: II - A patient with mild systemic disease. After reviewing the risks and benefits, the patient was deemed in satisfactory condition to undergo the procedure. The anesthesia plan was to use monitored anesthesia care (MAC). Immediately prior to administration of medications, the patient was re-assessed for adequacy to receive sedatives. The heart rate, respiratory rate, oxygen saturations, blood pressure, adequacy of pulmonary ventilation, and response to care were monitored throughout the procedure. The physical status of the patient was re-assessed after the procedure. After I obtained informed consent, the scope was passed under direct vision. Throughout the procedure, the patient's blood pressure, pulse, and oxygen saturations were monitored continuously. The Colonoscope was introduced through the anus and advanced to the terminal ileum. The colonoscopy was performed without difficulty. The patient tolerated the procedure well. The quality of the bowel preparation was adequate. The terminal ileum, ileocecal valve, appendiceal orifice, and rectum were photographed. Scope In: 7:14:29 AM Scope Withdrawal Time 0 hours 8 minutes 24 seconds Scope Out: 7:24:25 AM Total Procedure Duration Time 0 hours 9 minutes 56 seconds Findings: The perianal and digital rectal examinations were normal. A few small-mouthed diverticula were found in the recto-sigmoid colon and sigmoid colon. The exam was otherwise without abnormality on direct and retroflexion views. The terminal ileum appeared normal. Impression: - Diverticulosis in the recto-sigmoid colon and in the sigmoid colon. - The examination was otherwise normal on direct and retroflexion views. - The examined portion of the ileum was normal. - No specimens collected. Recommendation: - Discharge patient to home. - Resume previous diet. - Continue present medications. - Await pathology results. - Repeat colonoscopy in 10 years for screening purposes. Procedure Code(s): --- Professional --- G0121, Colorectal cancer screening; colonoscopy on individual not meeting criteria for high risk CPT copyright 2021 [employer]. All rights reserved. The codes documented in this report are preliminary and upon candy bar attendant review may be revised to meet current compliance requirements. Curt Alvarenga DO 10/25/2024 7:31:46 AM This report has been signed electronically. Number of Addenda: 0 Note Initiated On: 10/25/2024 7:13 AM
--- NOTE | 2024-10-25 07:32 | OP.CCLET_ITS ---
10/25/2024 Dalton Garcia Re : Colonoscopy procedure for Blake Pruett Dear Eduardo This procedure was performed on Friday, October 25, 2024. My impressions and recommendations are as follows: Impressions : - Diverticulosis in the recto-sigmoid colon and in the sigmoid colon. - The examination was otherwise normal on direct and retroflexion views. - The examined portion of the ileum was normal. - No specimens collected. Recommendations : - Discharge patient to home. - Resume previous diet. - Continue present medications. - Await pathology results. - Repeat colonoscopy in 10 years for screening purposes. My findings are described in the full procedure note, which is enclosed. If I can be of further assistance, please feel free to contact me at . Sincerely, Curt Alvarenga, 10/25/2024 7:31:46 AM This report has been signed electronically.
--- NOTE | 2024-10-25 07:32 | PCM.POST.ANE ---
Anesthesia: Postop Eval I Current Vital Signs Temperature: 97.8 F Pulse Rate: 74 Blood Pressure: 131/96 Respiratory Rate: 18 Pulse Ox: 94 Oxygen Delivery Method: Room Air Assessment Airway patent: Yes Spontaneous unlabored respirations: Yes Mental status: Asleep nausea: No Vomiting: No Anesthesia Complication: No Fluid Hydration Crystalloid volume administer (ml): 50 Total IV fluid infused: 50 Progress Note Anesthesia document: Postop Eval 1 completed: Yes
--- NOTE | 2024-10-25 08:21 | PCM.POSTANE2 ---
Anesthesia Postop Eval I Sum Postop Eval Completion status Anesthesia document: Postop Eval 1 completed: Yes Anesthesia Postop Eval I Summary Anesthesia Postop Eval I Summary: Anesthesia Postop Eval I: Assessment Summary Airway patent Yes 10/25/24 07:33 [email or web address] Spontaneous unlabored Yes 10/25/24 07:33 [email or web address] respirations Mental status Asleep 10/25/24 07:33 [email or web address] nausea No 10/25/24 07:33 [email or web address] Vomiting No 10/25/24 07:33 [email or web address] Anesthesia Postop Eval I: Fluid Summary Crystalloid volume administer 50 10/25/24 07:33 [email or web address] (ml) Colloids volume administered ( ml) Blood Product volume administered (ml) Total IV fluid infused 50 10/25/24 07:33 [email or web address] Anesthesia Postop Eval I: Summary Notes Anesthesia Complication No 10/25/24 07:33 [email or web address] Anesthesia Complication Comment: Post-operative progress note Anesthesia: Postop Eval II Evaluation Mental status: Awake Pain Level: 0 nausea: No Vomiting: No
== END 2024-10-25 08:09 | disposition home or self-care (01) ==
LOC: EN 05:00 → AC 05:03
PROVIDERS: PCP Nurse Practitioner Family; Referring Provider Nurse Practitioner Family; Visit Provider Internal Medicine Gastroenterology
PROC: 0DJD8ZZ Inspection of Lower Intestinal Tract, Via Natural or Artificial Opening Endoscopic (ICD-10-PCS; CPT 45378; principal; 2024-10-25 06:25)
DX: Z12.11 Encounter for screening for malignant neoplasm of colon (principal); J44.9 Chronic obstructive pulmonary disease, unspecified; R10.11 Right upper quadrant pain; K57.30 Diverticulosis of large intestine without perforation or abscess without bleeding; I10 Essential (primary) hypertension; K29.80 Duodenitis without bleeding; Z79.899 Other long term (current) drug therapy; F17.210 Nicotine dependence, cigarettes, uncomplicated; R11.0 Nausea; K21.00 Gastro-esophageal reflux disease with esophagitis, without bleeding; K31.89 Other diseases of stomach and duodenum; K29.50 Unspecified chronic gastritis without bleeding; A04.8 Other specified bacterial intestinal infections
CPT/HCPCS: 43239; 45378; 88305; 88342; A4216; J2405